=== PATIENT | female | born 1935 | race Caucasian/White ===

== ENCOUNTER → 2017-10-25 | Outpatient (CLI) | payer OTHER, MEDICARE ==
[2017-10-25 01:09] LABS: BILIRUBIN,URINE NEGATIVE (NEGATIVE); KETONES,URINE NEGATIVE (NEGATIVE); LEUKOCYTE ESTERASE ,URINE 1+ (NEGATIVE); NITRITE,URINE NEGATIVE (NEGATIVE); PH,URINE 6.5 (5-9); PROTEIN,URINE 1+ (NEGATIVE); UROBILINOGEN,URINE 1 MG/DL (NORMAL)
[2017-10-25 01:15] LABS: CALCIUM OXALATE CRYSTALS,UR FEW /LPF; WBC,URINE 0-2 /HPF
== END ==
LOC: CVS 01:01
PROVIDERS: ATTEND Internal Medicine
DX: R41.0 Disorientation, unspecified (principal); Z87.440 Personal history of urinary (tract) infections; R82.90 Unspecified abnormal findings in urine
CPT/HCPCS: 81000; 87088; 87186

== ENCOUNTER → 2018-06-03 | Outpatient (CLI) | payer MEDICARE ==
[2018-06-03 21:40] LABS: BILIRUBIN,URINE NEGATIVE (NEGATIVE); CLARITY,URINE MUCOUS; COLOR,URINE YELLOW; GLUCOSE, URINE (UA) NEGATIVE (NEGATIVE); KETONES,URINE NEGATIVE (NEGATIVE); LEUKOCYTE ESTERASE ,URINE 1+ (NEGATIVE); NITRITE,URINE NEGATIVE (NEGATIVE); PH,URINE 5 (5-9); PROTEIN,URINE 2+ (NEGATIVE); UROBILINOGEN,URINE NORMAL (NORMAL)
[2018-06-03 21:50] LABS: BACTERIA,URINE MODERATE /HPF; CALCIUM OXALATE CRYSTALS,UR MODERATE /LPF; RBC,URINE RARE /HPF; WBC,URINE RARE /HPF
[2018-06-03 21:51] LABS: AMORPHOUS SEDIMENT,UR LARGE AMOR URATES /LPF
== END ==
LOC: CVS 21:36
PROVIDERS: ATTEND Internal Medicine
DX: R32 Unspecified urinary incontinence (principal); R30.0 Dysuria; R35.0 Frequency of micturition; M54.9 Dorsalgia, unspecified; R82.99 Other abnormal findings in urine
CPT/HCPCS: 81000; 87088